=== PATIENT | female | born 1995 | race African-American/Black ===

== ENCOUNTER 2021-03-19 10:21 | Day surgery (SDC) | payer BC | END 2021-03-19 12:05 | disposition home or self-care (01) | LOC: CSHSDC/OP 10:21 | PROVIDERS: ATTEND Obstetrics & Gynecology | DX: Z23 Encounter for immunization (principal); U07.1 COVID-19 | CPT/HCPCS: 96365; J3490; M0243; Q0244 ==

== ENCOUNTER 2021-03-31 12:48 | Day surgery (SDC) | payer BC ==
[2021-03-31] MEDS ORDERED: hydrALAZINE 20 MG/ML VIAL SLOW IVP PRN (13:53)
[2021-03-31 14:43] LABS: Bilirubin Neg (Negative); Blood, Urine Negative (Negative); Clarity Clear (Clear); Glucose, Urine (Dipstick) Normal (Negative); Ketone, Urine Negative (Negative); Leukocyte Negative (Negative); Nitrite Negative (Negative); Protein, Urine (Dipstick) Negative (Neg-Trace); Urobilinogen Normal mg/dL (Less than 2)
[2021-03-31 15:02] LABS: Bacteria/HPF None Seen HPF (None Seen); RBC/HPF 0-3 HPF (0-3); WBC/HPF 0-3 HPF (0-3)
== END 2021-03-31 15:22 | disposition home or self-care (01) ==
LOC: CSHLD/OP 12:48
PROVIDERS: ATTEND Obstetrics & Gynecology
DX: O26.893 Other specified pregnancy related conditions, third trimester (principal); R10.2 Pelvic and perineal pain; Z3A.34 34 weeks gestation of pregnancy; Z86.16 Personal history of COVID-19
CPT/HCPCS: 81001; 99284

== ENCOUNTER 2021-04-11 10:25 | Day surgery (SDC) | payer BC ==
[2021-04-11] MEDS ORDERED: hydrALAZINE 20 MG/ML VIAL SLOW IVP PRN (10:59)
== END 2021-04-11 12:16 | disposition home or self-care (01) ==
LOC: CSHLD/OP 10:25
PROVIDERS: ATTEND Emergency Medicine
DX: O99.891 Other specified diseases and conditions complicating pregnancy (principal); R51.9 Headache, unspecified; Z3A.36 36 weeks gestation of pregnancy; Z86.16 Personal history of COVID-19
CPT/HCPCS: 99282